=== PATIENT | female | born 1970 | race Caucasian/White ===

== ENCOUNTER → 2017-02-26 | Outpatient (CLI) | payer BC ==
--- NOTE | 2017-02-28 08:02 | MM ---
Reason for exam: screening (asymptomatic). Last mammogram was performed 1 year ago. History: Patient is postmenopausal. Benign excisional biopsy of the right breast, 2004. Physical Findings: A clinical breast exam by your physician is recommended on an annual basis and results should be correlated with mammographic findings. MG 3D Screening Mammo W/Cad Bilateral CC and MLO view(s) were taken. Prior study comparison: February 24, 2016, bilateral MG 3d screening mammo w/cad. February 22, 2015, bilateral MG screening mammo w CAD. May 08, 2013, bilateral digital screening mammo w/CAD. The breast tissue is extremely dense which could obscure a lesion on mammography. No significant changes when compared with prior studies. ASSESSMENT: Negative, BI-RAD 1 RECOMMENDATION: Routine screening mammogram of both breasts in 1 year.
== END | disposition home or self-care (01) ==
LOC: RADMAMWWP 07:31
PROVIDERS: ATTEND Family Medicine
DX: Z12.31 Encounter for screening mammogram for malignant neoplasm of breast (principal)
CPT/HCPCS: 77063; G0202

== ENCOUNTER → 2018-02-27 | Outpatient (CLI) | payer BC ==
--- NOTE | 2018-02-28 11:01 | MM ---
Reason for exam: screening (asymptomatic). Last mammogram was performed 1 year ago. History: Patient is postmenopausal. Benign excisional biopsy of the right breast, 2004. Physical Findings: A clinical breast exam by your physician is recommended on an annual basis and results should be correlated with mammographic findings. MG 3D Screening Mammo W/Cad Bilateral CC and MLO view(s) were taken. Prior study comparison: February 26, 2017, bilateral MG 3d screening mammo w/cad. February 24, 2016, bilateral MG 3d screening mammo w/cad. The breast tissue is extremely dense which could obscure a lesion on mammography. Benign calcifications bilaterally. No significant changes when compared with prior studies. ASSESSMENT: Benign, BI-RAD 2 RECOMMENDATION: Routine screening mammogram of both breasts in 1 year.
== END | disposition home or self-care (01) ==
LOC: RADMAMWWP 06:48
PROVIDERS: ATTEND Family Medicine
DX: Z12.31 Encounter for screening mammogram for malignant neoplasm of breast (principal)
CPT/HCPCS: 77063; 77067

== ENCOUNTER → 2018-12-05 | Outpatient (CLI) | payer BC ==
--- NOTE | 2018-12-18 15:31 | HM ---
HOLTER MONITOR REPORT 24 HOUR HOLTER MONITOR: INDICATION: Palpitations. The patient was monitored for 24 hours. The baseline rhythm appeared to be a sinus mechanism with a minimal heart rate of 45 beats per minute. The max heart rate 111 beats per minute. The average heart rate 66 beats per minute. Ventricular ectopy presented with less than 1% of the total beats count and presented only as isolated PVCs. Supraventricular ectopic events presented in less than 1% of total please count and present only as PACs and couplets. No evidence of sinus pause or sinus arrest seen. The patient reported no symptoms. CONCLUSION: 1. Sinus rhythm as a baseline mechanism. 2. Rare ventricular ectopic events. 3. Rare supraventricular ectopic events. 4. There is no evidence of any subsequent tachy or bradyarrhythmia. 5. There is no evidence of any advanced AV block. 6. There is no evidence of any sinus pause or sinus arrest. MMODL / IJN: [id number] /
== END ==
LOC: RADECHMAIN 11:42
PROVIDERS: ATTEND Family Medicine
DX: R00.2 Palpitations (principal)
CPT/HCPCS: 93225; 93226

== ENCOUNTER → 2019-03-04 | Outpatient (CLI) | payer BC ==
--- NOTE | 2019-03-05 08:44 | MM ---
Reason for exam: screening (asymptomatic). Last mammogram was performed 1 year ago. History: Patient is postmenopausal. Benign excisional biopsy of the right breast, 2004. Taking other hormone for 1 year. Physical Findings: A clinical breast exam by your physician is recommended on an annual basis and results should be correlated with mammographic findings. MG 3D Screening Mammo W/Cad Bilateral CC and MLO view(s) were taken. Prior study comparison: February 27, 2018, bilateral MG 3d screening mammo w/cad. February 26, 2017, bilateral MG 3d screening mammo w/cad. The breast tissue is extremely dense which could obscure a lesion on mammography. No significant changes when compared with prior studies. ASSESSMENT: Negative, BI-RAD 1 RECOMMENDATION: Routine screening mammogram of both breasts in 1 year. Patient should continue monthly self breast exams. A negative report should not preclude additional follow up of suspicious palpable abnormalities.
== END | disposition home or self-care (01) ==
LOC: RADMAMWWP 06:54
PROVIDERS: ATTEND Family Medicine
DX: Z12.31 Encounter for screening mammogram for malignant neoplasm of breast (principal)
CPT/HCPCS: 77063; 77067

== ENCOUNTER → 2019-09-09 | Outpatient (CLI) | payer BC ==
--- NOTE | 2019-09-09 10:38 | USB ---
Reason for exam: clinical finding. History: Patient is postmenopausal. Benign excisional biopsy of the right breast, 2004. Taking other hormone for 1 year. Indicated problem(s): lump or thickening in the left breast. Physical Findings: Nurse Summary: Patient complains of left breast lump x 2 weeks. 2cm movable, nontender lump at 2 o'clock in the left breast (nurse mj). US Breast LT Left complete breast ultrasound includes all four quadrants, the retroareolar region and axilla. Finding demonstrates a 2.7 x 1.6 x 2.4cm cystic lesion at 2 o'clock and a 0.5 x 0.4 x 0.5cm lesion too small to characterize at 2 o'clock for which a biopsy is recommended. These results were verbally communicated with the patient and result sheet given to the patient on 09/09/19. ASSESSMENT: Suspicious, BI-RAD 4 RECOMMENDATION: Ultrasound core biopsy of the left breast. Called Dr. Oconnor's office with mammographic findings and has scheduled an appointment for the patient for 09/17/19 at 1:[address] Hedrick. PRELIMINARY REPORT CALLED AND FAXED TO DR. HEDRICK ON 09/09/19.
== END | disposition home or self-care (01) ==
LOC: RADUSWWP 09:29
PROVIDERS: ATTEND Obstetrics & Gynecology
DX: N60.09 Solitary cyst of unspecified breast (principal)

== ENCOUNTER → 2020-08-03 | Outpatient (CLI) | payer BC ==
--- NOTE | 2020-08-04 09:37 | MM ---
Reason for exam: additional evaluation requested from prior study. Last mammogram was performed 1 year and 5 months ago. History: Patient is postmenopausal. Benign excisional biopsy of the left breast, September 2019. Benign excisional biopsy of the right breast, 2004. Taking other hormone for 2 years beginning at age 48. Physical Findings: Nurse did not find any significant physical abnormalities on exam. MG 3D Diag Mammo W/Cad TJ Bilateral CC and MLO view(s) were taken. Prior study comparison: March 04, 2019, bilateral MG 3d screening mammo w/cad. February 27, 2018, bilateral MG 3d screening mammo w/cad. The breast tissue is extremely dense which could obscure a lesion on mammography. There are benign appearing round and dystrophic calcifications bilaterally. There is no discrete abnormality. These results were verbally communicated with the patient and result sheet given to the patient on 08/03/20. ASSESSMENT: Benign, BI-RAD 2 RECOMMENDATION: Routine screening mammogram of both breasts in 1 year.
--- NOTE | 2020-08-04 09:39 | USB ---
Reason for exam: additional evaluation requested from abnormal screening. History: Patient is postmenopausal. Benign excisional biopsy of the left breast, September 2019. Benign excisional biopsy of the right breast, 2004. Taking other hormone for 2 years beginning at age 48. US Breast Limited LT Left limited breast ultrasound including focal area of concern, retroareolar and axilla demonstrates a 9 x 5 x 8mm cystic lesion at 2 o'clock and a 8 x 4 x 6mm cystic lesion at 2 o'clock. Multiple subcentimeter cystic areas visualized. These results were verbally communicated with the patient and result sheet given to the patient on 08/03/20. ASSESSMENT: Probably benign, BI-RAD 3 RECOMMENDATION: Follow-up diagnostic mammogram and ultrasound of the left breast in 6 months.
== END | disposition home or self-care (01) ==
LOC: RADMAMWWP 14:51
PROVIDERS: ATTEND Student in an Organized Health Care Education/Training Program
DX: R93.89 Abnormal findings on diagnostic imaging of other specified body structures (principal)
CPT/HCPCS: 77062; 77066

== ENCOUNTER → 2021-04-07 | Outpatient (CLI) | payer BC ==
--- NOTE | 2021-04-13 11:52 | MM ---
Reason for exam: follow-up at short interval from prior study. Last mammogram was performed 8 months ago. History: Patient is postmenopausal. Benign excisional biopsy of the left breast, September 2019. Benign excisional biopsy of the right breast, 2004. Taking other hormone for 3 years beginning at age 48. Physical Findings: Nurse did not find any significant physical abnormalities on exam. MG 3D Diag Mammo W/Cad TJ Bilateral CC and MLO view(s) were taken. Prior study comparison: August 03, 2020, bilateral MG 3d diag mammo w/cad TJ. March 04, 2019, bilateral MG 3d screening mammo w/cad. February 27, 2018, bilateral MG 3d screening mammo w/cad. The breast tissue is heterogeneously dense. This may lower the sensitivity of mammography. Finding: There are new, fine, grouped/clustered calcifications in the posterior position 7cm from the nipple. Not identified on additional images. New finding since August 03, 2020, March 04, 2019, and February 27, 2018. These results were verbally communicated with the patient and result sheet given to the patient on 04/07/21. ASSESSMENT: Incomplete: need additional imaging evaluation, BI-RAD 0 RECOMMENDATION: Ultrasound of the left breast. Follow-up diagnostic mammogram of the left breast in 6 months. (with CC magnification)
--- NOTE | 2021-04-13 11:54 | USB ---
Reason for exam: follow-up at short interval from prior study. History: Patient is postmenopausal. Benign excisional biopsy of the left breast, September 2019. Benign excisional biopsy of the right breast, 2004. Taking other hormone for 3 years beginning at age 48. US Breast LT Left complete breast ultrasound includes all four quadrants, the retroareolar region and axilla. Finding demonstrates a 7 x 4 x 6mm oval, mixed lesion at 2 o'clock, suspicious, biopsy recommended and a 5 x 3 x 4mm oval, cystic lesion at 2 o'clock. These results were verbally communicated with the patient and result sheet given to the patient on 04/07/21. ASSESSMENT: Suspicious, BI-RAD 4 RECOMMENDATION: Ultrasound core biopsy of the left breast. Called office with mammographic findings and has scheduled an appointment for the patient for 04/27/21 at 9:[address] Zacarias. Biopsy scheduled for 04/21/21 at 9:30. PRELIMINARY REPORT CALLED AND FAXED TO DR. ZACARIAS ON 04/13/21.
== END | disposition home or self-care (01) ==
LOC: RADMAMWWP 14:06
PROVIDERS: ATTEND Student in an Organized Health Care Education/Training Program
DX: R92.2 Inconclusive mammogram (principal); R92.1 Mammographic calcification found on diagnostic imaging of breast; Z78.0 Asymptomatic menopausal state
CPT/HCPCS: 77062; 77066

== ENCOUNTER → 2021-04-21 | Day surgery (SDC) | payer BC ==
[2021-04-21 09:49] VITALS: BP 114/70; PULSE 65; RESP 16; TEMP 98.6
--- NOTE | 2021-04-21 11:59 | USB ---
Left breast ultrasound INDICATION: Abnormal prior exam COMPARISON: 04/07/2021, 08/03/2020 FINDINGS: Targeted left breast ultrasound was performed at 2:00. There is a hypoechoic lesion in the left breas t at 2:00 which appears similar to the prior examinations dating back to July 2020. As this lesion likely represents a complicated cyst, unchanged since July 2020, biopsy was canceled. Follow-up l eft breast ultrasound is recommended in 6 months. IMPRESSION: Follow-up left breast ultrasound is recommended in 6 months to reevaluate the likely complicated cyst at 2:00. BI-RADS 3, probably benign.
== END ==
LOC: RADUSWWP 09:21
PROVIDERS: ATTEND Student in an Organized Health Care Education/Training Program
DX: R92.8 Other abnormal and inconclusive findings on diagnostic imaging of breast (principal); Z88.5 Allergy status to narcotic agent; Z88.2 Allergy status to sulfonamides; Z53.8 Procedure and treatment not carried out for other reasons

== ENCOUNTER → 2021-07-06 | Outpatient (CLI) | payer BC ==
--- NOTE | 2021-07-06 09:56 | MM ---
Reason for exam: follow-up at short interval from prior study. Last mammogram was performed 3 months ago. History: US discontinued breast bx LT of the left breast, April 21, 2021. Benign excisional biopsy of the left breast, September 2019. Benign excisional biopsy of the right breast, 2004. Took hormonal contraceptives for 7 years. Taking other hormone for 3 years beginning at age 48. Physical Findings: Nurse Summary: 2.5cm nodule in the right breast at 10 o'clock (nurse ms). MG 3D Diag Mammo W/Cad TJ Bilateral CC and MLO view(s) were taken. Prior study comparison: April 07, 2021, bilateral MG 3d diag mammo w/cad TJ. August 03, 2020, bilateral MG 3d diag mammo w/cad TJ. The breast tissue is extremely dense which could obscure a lesion on mammography. Stable scattered calcifications. There is no discrete abnormality including area of concern. These results were verbally communicated with the patient and result sheet given to the patient on 07/06/21. ASSESSMENT: Incomplete: need additional imaging evaluation, BI-RAD 0 RECOMMENDATION: Ultrasound of the right breast. Manage patient on a clinical basis.
--- NOTE | 2021-07-06 09:57 | USB ---
Reason for exam: clinical finding. History: US discontinued breast bx LT of the left breast, April 21, 2021. Benign excisional biopsy of the left breast, September 2019. Benign excisional biopsy of the right breast, 2004. Took hormonal contraceptives for 7 years. Taking other hormone for 3 years beginning at age 48. US Breast Limited RT Right limited breast ultrasound including focal area of concern, retroareolar and axilla demonstrates a 1.5 x 1.4 x 1.6cm oval, smooth, cystic lesion at 10 o'clock. These results were verbally communicated with the patient and result sheet given to the patient on 07/06/21. ASSESSMENT: Benign, BI-RAD 2 RECOMMENDATION: Routine screening mammogram of both breasts in 1 year. Manage patient on a clinical basis.
== END | disposition home or self-care (01) ==
LOC: RADMAMWWP 08:45
PROVIDERS: ATTEND Obstetrics & Gynecology
DX: R92.1 Mammographic calcification found on diagnostic imaging of breast (principal); N60.01 Solitary cyst of right breast
CPT/HCPCS: 77062; 77066

== ENCOUNTER 2021-10-19 07:40 | Day surgery (SDC) | payer BC ==
[2021-10-17 14:37] VITALS: BMI 25.0
[~2021-10-19 07:40] MED LIST: LACTATED RINGERS 1,000 ML IV SCH
[2021-10-19] MEDS ORDERED: ONDANSETRON 4 MG/2 ML VIAL ONE ×2 (07:54→08:54)
[2021-10-19] MEDS ORDERED: PROPOFOL 10 MG/ML 20 ML VIAL IV ONE (08:54)
[2021-10-19] MEDS ORDERED: LACTATED RINGERS 1,000 ML IV ONE (09:07)
--- NOTE | 2021-10-19 09:07 | P.PCN ---
Date of Procedure: 10/19/21 Procedure(s) Performed: BRIEF HISTORY: Patient is a 51-year-old pleasant white female scheduled for an elective colonoscopy as a part of skin for colorectal neoplasia. PROCEDURE PERFORMED: Colonoscopy. PREOPERATIVE DIAGNOSIS: Screening for colon cancer. IV sedation per Anesthesia. PROCEDURE: After informed consent was obtained, the patient, was brought into the endoscopy unit. IV sedation was administered by Anesthesia under continuous monitoring. Digital rectal examination was normal. Initially the Olympus CF-160 flexible video colonoscope was then inserted in the rectum, gradually advanced into the cecum without any difficulty. Careful examination was performed as the scope was gradually being withdrawn. Ileocecal valve and the appendiceal orifice were visualized and appeared normal. Prep was excellent. Mucosa of the cecum, ascending colon, transverse colon, descending colon, sigmoid colon, and rectum appeared normal. Retroflexion was performed in the rectum and no lesions were seen. The patient tolerated the procedure well. IMPRESSION: Normal-appearing colon from rectum to cecum with no evidence of colorectal neoplasia . RECOMMENDATIONS: Findings of this examination were discussed with the patient as well as her family. She was advised to have a repeat screening colonoscopy in 10 years.
[2021-10-19 09:17] VITALS: RESP 16
[2021-10-19 09:34] VITALS: BP 126/59; PULSE 53
== END 2021-10-19 09:48 | disposition home or self-care (01) ==
LOC: ORWHC2ENDO 07:40
PROVIDERS: ATTEND Internal Medicine Gastroenterology
DX: Z12.11 Encounter for screening for malignant neoplasm of colon (principal); E07.9 Disorder of thyroid, unspecified; Z88.5 Allergy status to narcotic agent; Z88.2 Allergy status to sulfonamides
CPT/HCPCS: J2405; J2704; G0121

== ENCOUNTER → 2022-01-04 | Outpatient (CLI) | payer BC ==
--- NOTE | 2022-01-04 14:34 | MM ---
Reason for exam: screening (asymptomatic). Last mammogram was performed 6 months ago. History: US discontinued breast bx LT of the left breast, April 21, 2021. Benign excisional biopsy of the left breast, September 2019. Benign excisional biopsy of the right breast, 2004. Took hormonal contraceptives for 7 years. Taking other hormone for 3 years beginning at age 48. Physical Findings: A clinical breast exam by your physician is recommended on an annual basis and results should be correlated with mammographic findings. MG 3D Screening Mammo W/Cad Bilateral CC and MLO view(s) were taken. Prior study comparison: July 06, 2021, bilateral MG 3d diag mammo w/cad TJ. April 07, 2021, bilateral MG 3d diag mammo w/cad TJ. The breast tissue is heterogeneously dense. This may lower the sensitivity of mammography. Stable benign calcifications. There is no discrete abnormality. No significant changes when compared with prior studies. ASSESSMENT: Benign, BI-RAD 2 RECOMMENDATION: Routine screening mammogram of both breasts in 1 year.
== END | disposition home or self-care (01) ==
LOC: RADMAMWWP 11:03
PROVIDERS: ATTEND Obstetrics & Gynecology
DX: Z12.31 Encounter for screening mammogram for malignant neoplasm of breast (principal)
CPT/HCPCS: 77063; 77067

== ENCOUNTER → 2023-02-13 | Outpatient (CLI) | payer BC ==
--- NOTE | 2023-02-13 11:37 | MM ---
Reason for Exam: Screening (asymptomatic). Last mammogram was performed 1 year(s) and 1 month(s) ago. Patient History: Menarche at age 14. First Full-Term at age 19. Right ovary removed at age 31. Hysterectomy at age 31. Patient used Hormonal Contraceptives for 7 years. 2004, Benign Excisional Biopsy on the right side. 09/2019, Benign Excisional Biopsy on the left side. 04/21/2021, US discontinued breast bx LT on the left side. Risk Values: Rayna 5 year model risk: 1.1%. NCI Lifetime model risk: 9.5%. Prior Study Comparison: 04/07/2021 Bilateral Diagnostic Mammogram, [facility]. 07/06/2021 Bilateral Diagnostic Mammogram, [facility]. 01/04/2022 Bilateral Screening Mammogram, [facility]. Tissue Density: The breast tissue is extremely dense which could obscure a lesion on mammography. Findings: Analyzed By CAD. Appears symmetrical and stable. Scattered benign punctate calcifications are within the left breast. A coarse calcification within the right breast. No significant interval changes are evident. No suspicious groups of microcalcifications, spiculated or lobular masses, architectural distortion or other secondary signs of malignancy are mammographically apparent. Overall Assessment: Benign, BI-RAD 2 Management: Screening Mammogram of both breasts in 1 year. A negative mammogram report should not preclude additional follow up of suspicious palpable abnormalities. Patient should continue monthly self breast exam. A clinical breast exam by your physician is recommended on an annual basis and results should be correlated with mammographic findings. Electronically signed and approved by: Travis Duarte D.O. Radiologis
== END | disposition home or self-care (01) ==
LOC: RADMAMWWP 06:50
PROVIDERS: ATTEND Obstetrics & Gynecology
DX: Z12.31 Encounter for screening mammogram for malignant neoplasm of breast (principal)
CPT/HCPCS: 77063; 77067

== ENCOUNTER → 2024-02-18 | Outpatient (CLI) | payer BC ==
--- NOTE | 2024-02-19 14:14 | MM ---
Reason for Exam: Screening (asymptomatic). Last screening mammogram was performed 12 month(s) ago. Patient History: Menarche at age 14. First Full-Term at age 19. Right ovary removed at age 31. Hysterectomy at age 31. Patient used Hormonal Contraceptives for 7 years. 2004, Benign Excisional Biopsy on the right side. 09/2019, Benign Excisional Biopsy on the left side. 04/21/2021, US discontinued breast bx LT on the left side. Risk Values: Rayna 5 year model risk: 1.1%. NCI Lifetime model risk: 9.3%. Prior Study Comparison: 07/06/2021 Bilateral Diagnostic Mammogram, [facility]. 01/04/2022 Bilateral Screening Mammogram, [facility]. 02/13/2023 Bilateral MG 3D screening mammo w/cad, [facility]. Tissue Density: The breasts are heterogeneously dense, which may obscure small masses. Findings: Analyzed By CAD. There is no suspicious group of microcalcifications or new suspicious mass in either breast. Overall Assessment: Benign, BI-RAD 2 Management: Screening Mammogram of both breasts in 1 year. . Patient should continue monthly self-breast exams. A clinical breast exam by your physician is recommended on an annual basis. This exam should not preclude additional follow-up of suspicious palpable abnormalities. Note on Rayna scores and lifetime risk: 1. A Rayna score greater than 3% is considered moderate risk. If this is the case, consider specialist referral to assess eligibility for a risk reducing agent. 2. If overall lifetime risk for the development of breast cancer is 20% or higher, the patient may qualify for future screening with alternating mammogram and breast MRI. Electronically signed and approved by: Temo Mejia M.D. Radiologis
== END | disposition home or self-care (01) ==
LOC: RADMAMWWP 07:04
PROVIDERS: ATTEND Family Medicine
DX: Z12.31 Encounter for screening mammogram for malignant neoplasm of breast (principal)
CPT/HCPCS: 77063; 77067

== ENCOUNTER → 2025-02-23 | Outpatient (CLI) | payer BC ==
--- NOTE | 2025-02-23 08:26 | MM ---
Reason for Exam: Screening (asymptomatic). Last screening mammogram was performed 12 month(s) ago. Patient History: Menarche at age 14. First Full-Term at age 19. Right ovary removed at age 31. Hysterectomy at age 31. Patient used Hormonal Contraceptives for 7 years. 2004, Benign Excisional Biopsy on the right side. 09/2019, Benign Excisional Biopsy on the left side. 04/21/2021, US discontinued breast bx LT on the left side. Risk Values: Rayna 5 year model risk: 1.2%. NCI Lifetime model risk: 9.2%. Prior Study Comparison: 01/04/2022 Bilateral Screening Mammogram, [facility]. 02/13/2023 Bilateral MG 3D screening mammo w/cad, [facility]. 02/18/2024 Bilateral MG 3D screening mammo w/cad, [facility]. Tissue Density: The breasts are heterogeneously dense, which may obscure small masses. Findings: Analyzed By CAD. There is more prominent 13 mm focal asymmetry in the middle to posterior depth central aspect left breast on CC slice 35. Overall Assessment: Incomplete: need additional imaging evaluation, BI-RAD 0 Management: Special View Mammogram of the left breast. Diagnostic Breast Ultrasound of the left breast. Advise spot 3-D CC and 3-D true lateral views left breast and possible targeted ultrasound. Summation density versus true lesion. Patient should continue monthly self-breast exams. A clinical breast exam by your physician is recommended on an annual basis. This exam should not preclude additional follow-up of suspicious palpable abnormalities. Note on Rayna scores and lifetime risk: 1. A Rayna score greater than 3% is considered moderate risk. If this is the case, consider specialist referral to assess eligibility for a risk reducing agent. 2. If overall lifetime risk for the development of breast cancer is 20% or higher, the patient may qualify for future screening with alternating mammogram and breast MRI. [facility], , 02/23/2025 8:22 AM. Electronically signed and approved by: Reji Pollard M.D.
== END | disposition home or self-care (01) ==
LOC: RADMAMWWP 06:56
PROVIDERS: ATTEND Family Medicine
DX: Z12.31 Encounter for screening mammogram for malignant neoplasm of breast (principal); R92.333 Mammographic heterogeneous density, bilateral breasts; Z92.0 Personal history of contraception
CPT/HCPCS: 77063; 77067

== ENCOUNTER → 2025-02-25 | Outpatient (CLI) | payer BC ==
--- NOTE | 2025-02-25 08:16 | MM ---
Reason for Exam: Additional evaluation requested from abnormal screening. Last screening mammogram was performed less than 1 month ago. Patient History: Menarche at age 14. First Full-Term at age 19. Right ovary removed at age 31. Hysterectomy at age 31. Patient used Hormonal Contraceptives for 7 years. 2004, Benign Excisional Biopsy on the right side. 09/2019, Benign Excisional Biopsy on the left side. 04/21/2021, US discontinued breast bx LT on the left side. Risk Values: Rayna 5 year model risk: 1.2%. NCI Lifetime model risk: 9.2%. Prior Study Comparison: 02/13/2023 Bilateral MG 3D screening mammo w/cad, [facility]. 02/18/2024 Bilateral MG 3D screening mammo w/cad, [facility]. 02/23/2025 Bilateral MG 3D screening mammo w/cad, [facility]. Tissue Density: Left: The breasts are heterogeneously dense, which may obscure small masses. Findings: Analyzed By CAD. A 12 mm focal asymmetry in the middle depth central aspect left breast does not go completely away on additional views on background dense tissue. Overall Assessment: Incomplete: need additional imaging evaluation, BI-RAD 0 Management: Diagnostic Breast Ultrasound of the left breast. Targeted ultrasound left breast. Results were given to the patient verbally at the time of exam. Patient should continue monthly self-breast exams. A clinical breast exam by your physician is recommended on an annual basis. This exam should not preclude additional follow-up of suspicious palpable abnormalities. Note on Rayna scores and lifetime risk: 1. A Rayna score greater than 3% is considered moderate risk. If this is the case, consider specialist referral to assess eligibility for a risk reducing agent. 2. If overall lifetime risk for the development of breast cancer is 20% or higher, the patient may qualify for future screening with alternating mammogram and breast MRI. [facility], , 02/25/2025 8:13 AM. Electronically signed and approved by: Reji Pollard M.D.
--- NOTE | 2025-02-25 08:46 | USB ---
Reason for Exam: Additional evaluation requested from abnormal screening. Patient History: Menarche at age 14. First Full-Term at age 19. Right ovary removed at age 31. Hysterectomy at age 31. Patient used Hormonal Contraceptives for 7 years. 2004, Benign Excisional Biopsy on the right side. 09/2019, Benign Excisional Biopsy on the left side. 04/21/2021, US discontinued breast bx LT on the left side. Risk Values: Rayna 5 year model risk: 1.2%. NCI Lifetime model risk: 9.2%. Technique: Method: Targeted. Prior Study Comparison: 02/13/2023 Bilateral MG 3D screening mammo w/cad, [facility]. 02/18/2024 Bilateral MG 3D screening mammo w/cad, [facility]. 02/23/2025 Bilateral MG 3D screening mammo w/cad, [facility]. Findings: The upper section of the breast of the left breast, the axilla of the left breast and the retroareolar of the left breast were scanned. Targeted ultrasound is performed. No solid or cystic masses are identified. No suspicious left axillary adenopathy is seen. Overall Assessment: Probably benign, BI-RAD 3 Management: Diagnostic Mammogram of the left breast in 6 months. Precautionary short-term follow-up left breast mammogram. A clinical breast exam by your physician is recommended on an annual basis and results should be correlated with mammographic findings. This exam should not preclude additional follow-up of suspicious palpable abnormalities. Results were given to the patient verbally at the time of exam. [facility], , 02/25/2025 8:42 AM. Electronically signed and approved by: Reji Pollard M.D.
== END | disposition home or self-care (01) ==
LOC: RADMAMWWP 07:46
PROVIDERS: ATTEND Family Medicine
DX: R92.8 Other abnormal and inconclusive findings on diagnostic imaging of breast (principal); R92.331 Mammographic heterogeneous density, right breast; Z92.0 Personal history of contraception
CPT/HCPCS: 77061; 77065